=== PATIENT | female | born 1995 | race African-American/Black ===

== ENCOUNTER 2019-04-13 01:48 | Emergency (ER) | payer SELFPAY ==
[~2019-04-13] VITALS: Ht 167.6 cm; Wt 91.0 kg
[~2019-04-13 01:48] MED LIST: PRENATALS
[2019-04-13 02:16] VITALS: BP 146/98
== END 2019-04-13 02:35 | disposition left against medical advice (07) ==
LOC: ER 01:48
DX: F41.9 Anxiety disorder, unspecified (principal); Z53.21 Procedure and treatment not carried out due to patient leaving prior to being seen by health care provider

== ENCOUNTER 2022-02-16 12:28 | Emergency (ER) | payer MEDICAID ==
[~2022-02-16] VITALS: Ht 162.6 cm; Wt 97.0 kg
[2022-02-16 13:02] VITALS: BP 124/79
[2022-02-16] MEDS ORDERED: IBUPROFEN 600MG TABLET PO STA (13:28)
[2022-02-16] MEDS ORDERED: HYDROCODONE/ACETAMINOPHEN 5/325MG TABLET PO ONE (14:45)
[2022-02-16] MEDS ORDERED: NAPR-681 PO (16:08)
[2022-02-16] MEDS ORDERED: IBUPROFEN 600MG TABLET PO NR (16:15)
== END 2022-02-16 16:26 | disposition home or self-care (01) ==
LOC: ER 12:36
DX: M25.562 Pain in left knee (principal); M79.662 Pain in left lower leg; Z91.81 History of falling; Z88.0 Allergy status to penicillin; Z91.013 Allergy to seafood
CPT/HCPCS: 29505; 73562; 73590; 81025; 99284